=== PATIENT | female | born 1950 | race Caucasian/White ===

== ENCOUNTER → 2017-10-03 | Outpatient (CLI) | payer MEDICARE, OTHER ==
[~2017-10-03] MED LIST: ACIDOPHILUS PO; ASPI325T6 PO; CALTRATE-600 W600 MG PO; CARDI-OMEGA1000 MG PO; FERROUS SU325 MG/TAB PO; FOLIC ACID 40400 MCG PO; MVI PO; NORCO 325 MG-7.1 TAB PO; OSCAL 500 TAB500 MG PO; PREMPRO 0.625/21 TAB PO; ULTRAM 50MG TAB50 MG PO; VITAMIN C500 MG PO; VITAMIN D1000 IU PO
== END ==
LOC: MC.RAD 09-08 08:40
DX: Z12.31 Encounter for screening mammogram for malignant neoplasm of breast (principal)

== ENCOUNTER 2018-04-21 08:25 | Day surgery (SDC) | payer MEDICARE, OTHER ==
[~2018-04-21] VITALS: Ht 152.4 cm; Wt 57.7 kg
[2018-04-21 09:14] VITALS: BP 96/70; PULSE 77; TEMP 98.3
[2018-04-21] MEDS ORDERED: MAGNESIUM ELEME30 MG PO (09:18)
[2018-04-21] MEDS ORDERED: MULTI VITAMINS1 TAB PO (09:19)
[2018-04-21] MEDS ORDERED: NATURE'S BLE1000 MCG PO (09:19)
[2018-04-21] MEDS ORDERED: CEPHALEXIN500 M1 PO (09:20)
[2018-04-21 10:20] VITALS: BP 97/59; PULSE 69; TEMP 98.1
[2018-04-21 10:35] VITALS: BP 94/56; PULSE 57
[2018-04-21 10:50] VITALS: BP 94/56; PULSE 56
[2018-04-21 11:05] VITALS: BP 106/64; PULSE 63
== END 2018-04-21 11:36 | disposition home or self-care (01) ==
LOC: SDCO 08:25
DX: Z12.11 Encounter for screening for malignant neoplasm of colon (principal); Z86.010 Personal history of colon polyps
CPT/HCPCS: J2250; J3010

== ENCOUNTER → 2018-11-22 | Outpatient (CLI) | payer MEDICARE, OTHER ==
[~2018-11-22] MED LIST changes: +CEPHALEXIN500 M1 PO; +MAGNESIUM ELEME30 MG PO; +MULTI VITAMINS1 TAB PO; +NATURE'S BLE1000 MCG PO
== END ==
LOC: MC.RAD 10-11 09:00
DX: Z12.31 Encounter for screening mammogram for malignant neoplasm of breast (principal)

== ENCOUNTER → 2020-02-12 | Outpatient (CLI) | payer MEDICARE, OTHER | LOC: MC.RAD 08:47 | DX: Z12.31 Encounter for screening mammogram for malignant neoplasm of breast (principal) ==

== ENCOUNTER → 2021-03-03 | Outpatient (CLI) | payer MEDICARE, OTHER | LOC: MC.RAD 09:36 | DX: Z12.31 Encounter for screening mammogram for malignant neoplasm of breast (principal) ==

== ENCOUNTER → 2022-03-09 | Outpatient (CLI) | payer MEDICARE, OTHER | LOC: MC.RAD 07:35 | DX: Z12.31 Encounter for screening mammogram for malignant neoplasm of breast (principal) ==

== ENCOUNTER → 2024-06-05 | Outpatient (CLI) | payer MEDICARE, OTHER ==
[~2024-06-05] MED LIST changes: +ACIDOPHILIS; -MAGNESIUM ELEME30 MG PO; +MAGNESIUM250 M1 PO; +MOBIC15 MG PO; +RECLAST5 MG/100 M IV
== END ==
LOC: MC.RAD 08:49
DX: Z12.31 Encounter for screening mammogram for malignant neoplasm of breast (principal)